=== PATIENT | male | born 1950 | race African-American/Black ===

== ENCOUNTER → 2020-09-13 | Day surgery (SDC) | payer MEDICARE, MEDICAID ==
[~2020-09-13] VITALS: Ht 171.4 cm; Wt 108.0 kg
[~2020-09-13] MED LIST: ACET650T37 PO; ACETYLCHOLINE CHLORIDE INTRAOCULAR SOLUTION 1:100 ELECTROLYTE DILUENT IO ONE; AMLO10TA80 PO; ASPI-867 PO; ATOR40TA70 PO; BALANCED SALT IRRIG SOLN 15ML ONE; BALANCED SALT IRRIG SOLN COMB1 500ML OP SCH; BUDE9TAB INH; BUPIVACAINE HCL/PF 0.75% (7.5MG/ML) 10ML ONE; DOCU100T PO; HYALURONATE SODIUM 10 MG/ML 0.55ML SYRINGE IO ONE; LIDOCAINE HCL 2%/EPINEPHRINE 1:100,000 20 ML VIAL INFIL ONE; MELA5TAB3 PO; METHYLPREDNISOLONE SOD SUCC 40 MG/ML VIAL ONE; MIDAZOLAM HCL 2 MG/2 ML VIAL ONE; PHENYLEPHRINE 2.5% OPHTH 15 DROP/ML BOTTLE LEFTEYE ONE; PHENYLEPHRINE HCL 2.5% OPHTH DROPS 2ML ONE; PROPOFOL 200MG/20ML VIAL IV ONE; SODIUM CHLORIDE 0.9% 1,000 ML IV SCH; TETRACAINE 0.5% OPHTH DROPS 4ML ONE; TOBRAMYCIN/DEXAMETH 0.1/0.3% OPHTH SUSP 2.5ML ONE; TRIAMCINOLONE ACETONIDE 40MG/ML 1ML VIAL ONE; TROPICAMIDE 1% OPHTH DROPS 15ML LEFTEYE ONE; TROPICAMIDE 1% OPHTH DROPS 15ML ONE
[2020-09-13 07:04] LABS: BASOPHILS % 0.6 % (0.0-2.0); HEMATOCRIT. 43.9 % (42.0-52.0); HEMOGLOBIN. 14.9 g/dL (14.0-18.0); LYMPHOCYTES % 39.7 % (20.0-50.0); MEAN CORPUSCULAR HEMOGLOBIN 29.6 pg (28.0-32.0); MEAN CORPUSCULAR VOLUME 87.5 fL (80.0-94.0); MEAN PLATELET VOLUME 8.5 fl (7.4-10.4); MONOCYTES % 10.2 % (2.0-8.0); NEUTROPHILS % 46.5 % (40.0-76.0); PLATELET 138 x1000/uL (130-400); RED BLOOD CELL COUNT 5.02 mill/uL (4.7-6.1); RED CELL DISTRIBUTION WIDTH 13.4 % (11.6-14.6)
[2020-09-13 07:12] LABS: CHLORIDE 108 mEq/L (98-107)
== END | disposition home or self-care (01) ==
LOC: OR 06:15
PROVIDERS: ATTEND Ophthalmology
DX: H25.89 Other age-related cataract (principal); I10 Essential (primary) hypertension; J44.9 Chronic obstructive pulmonary disease, unspecified; I25.10 Atherosclerotic heart disease of native coronary artery without angina pectoris; Z79.82 Long term (current) use of aspirin; Z79.899 Other long term (current) drug therapy; Z98.890 Other specified postprocedural states
CPT/HCPCS: 36415; 66984; 67005; 80048; 82962; 85025; 93005; C1893; J2250; J2704; J2920; J3301; J3490; V2630